=== PATIENT | female | born 1990 | race African-American/Black ===

== ENCOUNTER 2018-07-15 18:27 | Inpatient (IN) | payer MEDICAID ==
[~2018-07-15] VITALS: Ht 167.6 cm; Wt 75.3 kg
[~2018-07-15 18:27] MED LIST: COM10T PO; KEP500T PO; NAPR500T6 PO; PROC-8; SUMA100T PO
[2018-07-15] MEDS ORDERED: acetaminophen 325mg tablet PO ONE (18:50)
[2018-07-15 19:23] LABS: BASOPHILS % (AUTO) 0.3 % (0-1); EOSINOPHILS % (AUTO) 0.1 % (0-6); HEMATOCRIT 38.3 % (35.0-45.0); HEMOGLOBIN 12.6 g/dl (12.0-16.0); LYMPHOCYTES # (AUTO) 1.1 X10'3 (1.1-4.8); MEAN CORPUSCULAR HGB CONC 32.8 g/dL (33.0-36.5); MEAN CORPUSCULAR VOLUME 79.4 FL (78-98); MEAN PLATELET VOLUME 8.4 FL (7.4-10.4); MONOCYTES # (AUTO) 0.8 X10'3 (0-0.9); MONOCYTES % (AUTO) 8.1 % (2-12); NEUTROPHILS # (AUTO) 8.3 X10'3 (1.8-7.7); NEUTROPHILS % (AUTO) 80.5 % (42-75); PLATELET COUNT 240 X10'3 (140-440); RED BLOOD COUNT 4.83 X10'6 (4.20-5.60); RED CELL DISTRIBUTION WIDTH 15.5 % (11.5-14.5); WHITE BLOOD COUNT 10.4 X10'3 (4.5-11.0)
[2018-07-15 19:36] LABS: ALANINE AMINOTRANSFERASE 56 U/L (12-78); ALBUMIN 3.4 G/DL (3.4-5.0); ALBUMIN/GLOBULIN RATIO 0.8 (1.1-1.5); ALKALINE PHOSPHATASE 105 IU/L (46-116); ANION GAP 11 (8-16); ASPARTATE AMINO TRANSFERASE 49 U/L (10-37); BILIRUBIN,TOTAL 0.4 MG/DL (0.1-1.0); BLOOD UREA NITROGEN 7 MG/DL (7-18); BUN/CREATININE RATIO 10.4 (6.6-38.0); CALCIUM 8.5 MG/DL (8.5-10.1); CHLORIDE 98 MMOL/L (99-107); CREATININE 0.67 MG/DL (0.40-0.90); GLUCOSE 99 MG/DL (70-104); POTASSIUM 3.6 MMOL/L (3.5-5.1); SODIUM 133 MMOL/L (135-145); TOTAL CARBON DIOXIDE 24.2 MMOL/L (24-32); TOTAL PROTEIN 7.5 G/DL (6.4-8.2); eGFR > 90 ML/MIN
[2018-07-15 19:38] LABS: INR 1.2 INR; PARTIAL THROMBOPLASTIN TIME 34 SECONDS (22-32); PROTHROMBIN TIME 11.7 SECONDS (9.0-12.0)
[2018-07-15] MEDS ORDERED: normal saline 1000ML IV soln IVB ONE (19:45)
[2018-07-15] MEDS ORDERED: albuterol 2.5 MG/3 ML nebule NEB ONE (19:45)
[2018-07-15 19:52] LABS: CLARITY,URINE SLIGHTLY CLOUDY (Clear); COLOR,URINE YELLOW (Yellow); GLUCOSE, URINE NEGATIVE (Neg); KETONES,URINE 15 mg/dl (Neg); LEUKOCYTE ESTERASE ,URINE NEGATIVE (Neg); NITRITES, URINE NEGATIVE (Neg); OCCULT BLOOD,URINE LARGE (Neg); PROTEIN,URINE TRACE mg/dl (Neg)
[2018-07-15 19:56] LABS: UA COLLECTION TYPE CLN CATCH MIDSTREAM
[2018-07-15 19:57] LABS: MUCUS STRANDS MODERATE /LPF (Neg); SQUAMOUS EPITHELIAL CELL,UR MANY /LPF (FEW)
[2018-07-15 19:58] LABS: BACTERIA,URINE 2+ /HPF (Neg); WBC,URINE 0-4 /HPF (0-4)
[2018-07-15 20:14] LABS: URINE HCG NEGATIVE (NEG)
[2018-07-15] MEDS ORDERED: CefTRIAXone/D5W-Rocephin 1gm 50 ML IV ONE (20:20)
--- NOTE | 2018-07-15 20:35 | NUR ---
Dr kilgore made aware of spo2 88 on room air, patient currently on 1L via NC.
[2018-07-15] MEDS ORDERED: magnesium hydroxide 30ml (MOM) UD suspension PO PRN (20:40)
[2018-07-15] MEDS ORDERED: BUPR1FIL3 SL (20:40)
[2018-07-15] MEDS ORDERED: ondansetron/PF 4mg/2ml inj IV PRN (20:40)
[2018-07-15] MEDS ORDERED: acetaminophen 325mg tablet PO PRN (20:40)
[2018-07-15] MEDS ORDERED: mag hydrox/Alum hydrox/simeth 30ml oral suspension PO PRN (20:40)
[2018-07-15] MEDS: normal saline 1000ml 1,000 ML IV SCH (20:44)
[2018-07-15] MEDS ORDERED: SUMAtriptan 25 MG tablet PO PRN (20:45)
[2018-07-15] MEDS: levetiracetam 250mg tablet PO SCH (21:17)
--- NOTE | 2018-07-15 22:00 | NUR ---
pT REFUSED 2 TOMMIE NICOLE CHECK AT THIS TIME, DOES NOT WANT TO REMOVE CLOTHES, SKIN TO CHEST AND BACK IS CLEAR. PT IS INDEPENDENT, DENIES ANY SKIN ISSUES, SORES OR WOUNDS. Addendum: 07/15/18 at 0187 by Hermann Olivarez RN Amended: Links added.
[2018-07-16 00:26] VITALS: BP 99/54
[2018-07-16 05:00] LABS: BASOPHILS % (AUTO) 0.2 % (0-1); EOSINOPHILS % (AUTO) 0.1 % (0-6); HEMATOCRIT 34.6 % (35.0-45.0); HEMOGLOBIN 11.2 g/dl (12.0-16.0); LYMPHOCYTES # (AUTO) 1.8 X10'3 (1.1-4.8); LYMPHOCYTES % (AUTO) 16.3 % (21-51); MEAN CORPUSCULAR HEMOGLOBIN 25.8 PG (27.0-31.0); MEAN CORPUSCULAR HGB CONC 32.2 g/dL (33.0-36.5); MEAN CORPUSCULAR VOLUME 80.1 FL (78-98); MEAN PLATELET VOLUME 8.7 FL (7.4-10.4); MONOCYTES # (AUTO) 0.8 X10'3 (0-0.9); MONOCYTES % (AUTO) 7.5 % (2-12); NEUTROPHILS # (AUTO) 8.5 X10'3 (1.8-7.7); NEUTROPHILS % (AUTO) 75.9 % (42-75); PLATELET COUNT 208 X10'3 (140-440); RED BLOOD COUNT 4.33 X10'6 (4.20-5.60); RED CELL DISTRIBUTION WIDTH 15.9 % (11.5-14.5); WHITE BLOOD COUNT 11.2 X10'3 (4.5-11.0)
[2018-07-16 05:22] LABS: ALANINE AMINOTRANSFERASE 48 U/L (12-78); ALBUMIN 2.8 G/DL (3.4-5.0); ALBUMIN/GLOBULIN RATIO 0.7 (1.1-1.5); ALKALINE PHOSPHATASE 87 IU/L (46-116); ANION GAP 9 (8-16); ASPARTATE AMINO TRANSFERASE 35 U/L (10-37); BILIRUBIN,TOTAL 0.5 MG/DL (0.1-1.0); BLOOD UREA NITROGEN 5 MG/DL (7-18); BUN/CREATININE RATIO 7.8 (6.6-38.0); CALCIUM 8.2 MG/DL (8.5-10.1); CHLORIDE 103 MMOL/L (99-107); CREATININE 0.64 MG/DL (0.40-0.90); GLUCOSE 94 MG/DL (70-104); POTASSIUM 3.5 MMOL/L (3.5-5.1); SODIUM 138 MMOL/L (135-145); TOTAL CARBON DIOXIDE 26.2 MMOL/L (24-32); TOTAL PROTEIN 6.6 G/DL (6.4-8.2); eGFR > 90 ML/MIN
[2018-07-16] MEDS: normal saline 1000ml 1,000 ML IV SCH ×2 (05:59→15:00)
--- NOTE | 2018-07-16 06:31 | NUR ---
Problems reprioritized. Patient report given, questions answered & plan of care reviewed with TOMMIE RIVERA. Addendum: 07/16/18 at 0632 by Hermann Olivarez RN Amended: Links added.
--- NOTE | 2018-07-16 06:57 | NUR ---
Patient in room TEZ 345. I have received report from Jerri REILLY and had the opportunity to ask questions and assume patient care.
[2018-07-16] MEDS: albuterol 2.5 MG/3 ML nebule NEB PRN ×2 (07:55→17:06)
[2018-07-16 08:00] VITALS: BP 102/50
[2018-07-16] MEDS: azithromycin 250mg tablet PO SCH (08:45)
[2018-07-16] MEDS: levetiracetam 250mg tablet PO SCH ×2 (08:45→19:30)
[2018-07-16] MEDS: buprenorphine/naloxone 8MG-2MG SUBlingual film SL SCH (08:51)
[2018-07-16 11:04] VITALS: BP 90/50
--- NOTE | 2018-07-16 17:33 | NUR ---
pt was receiving breathing tx and o2sat 78% with 2.5L o2 via N/C. O2 turned up to 6L and pt o2 sat 92%. call to Dr. Rockwell, informed of above. Dr to make changes to pt medications. RT put pt on high flow o2 via n/c o2sat 93% on 8L.
[2018-07-16] MEDS ORDERED: ipratropium/albuterol 3ml nebule NEB PRN (18:15)
--- NOTE | 2018-07-16 18:26 | NUR ---
Patient in room TEZ 345. I have received report from TOMMIE Mcclendon and had the opportunity to ask questions and assume patient care. Addendum: 07/16/18 at 1827 by Hermann Olivarez RN Amended: Links added.
--- NOTE | 2018-07-16 18:36 | NUR ---
Problems reprioritized. Patient report given, questions answered & plan of care reviewed with Karie REILLY.
[2018-07-16 18:45] VITALS: BP 116/54
[2018-07-16 19:21] LABS: ABG HCO3 22.7 mmol/L (22.0-26.0); ABG OXYGEN SATURATION 95.7 % (95-98); ABG PCO2 (T) 35.4 mmHg (32.0-45.0); ABG PH (T) 7.428 (7.350-7.450); ABG PO2 (T) 80.8 mmHg (83-108); ALLEN'S TEST Positive; FCOHb 0.3 % (0.5-1.5); FLOW 8 L/min; FMetHb 0.3 % (0.3-1.12); FO2Hb 95.1 % (94-100); PATIENT TEMPERATURE 37.7; TOTAL HEMOGLOBIN 11.5 G/dl (12.0-16.0)
[2018-07-16] MEDS ORDERED: CefTRIAXone/D5W-Rocephin 1gm 50 ML IV SCH (20:00)
[2018-07-16] MEDS: ipratropium/albuterol 3ml nebule NEB SCH ×2 (20:03→23:00)
[2018-07-16 23:38] VITALS: BP_SYST 116; BP_SYST 118; BP_DIAS 54; BP_DIAS 64
[2018-07-17] MEDS: normal saline 1000ml 1,000 ML IV SCH ×2 (00:35→13:24)
[2018-07-17 05:24] LABS: BASOPHILS % (AUTO) 0.2 % (0-1); EOSINOPHILS % (AUTO) 0.4 % (0-6); HEMATOCRIT 31.3 % (35.0-45.0); HEMOGLOBIN 10.4 g/dl (12.0-16.0); LYMPHOCYTES # (AUTO) 1.3 X10'3 (1.1-4.8); LYMPHOCYTES % (AUTO) 12.1 % (21-51); MEAN CORPUSCULAR HEMOGLOBIN 26.5 PG (27.0-31.0); MEAN CORPUSCULAR HGB CONC 33.1 g/dL (33.0-36.5); MEAN PLATELET VOLUME 8.5 FL (7.4-10.4); MONOCYTES # (AUTO) 0.7 X10'3 (0-0.9); MONOCYTES % (AUTO) 6.5 % (2-12); NEUTROPHILS # (AUTO) 8.7 X10'3 (1.8-7.7); NEUTROPHILS % (AUTO) 80.8 % (42-75); PLATELET COUNT 195 X10'3 (140-440); RED BLOOD COUNT 3.91 X10'6 (4.20-5.60); RED CELL DISTRIBUTION WIDTH 16.2 % (11.5-14.5); WHITE BLOOD COUNT 10.8 X10'3 (4.5-11.0)
[2018-07-17 05:40] LABS: ALANINE AMINOTRANSFERASE 33 U/L (12-78); ALBUMIN 2.4 G/DL (3.4-5.0); ALBUMIN/GLOBULIN RATIO 0.6 (1.1-1.5); ALKALINE PHOSPHATASE 75 IU/L (46-116); ANION GAP 9 (8-16); ASPARTATE AMINO TRANSFERASE 18 U/L (10-37); BILIRUBIN,TOTAL 0.2 MG/DL (0.1-1.0); BLOOD UREA NITROGEN 5 MG/DL (7-18); BUN/CREATININE RATIO 9.4 (6.6-38.0); CHLORIDE 105 MMOL/L (99-107); CREATININE 0.53 MG/DL (0.40-0.90); GLUCOSE 145 MG/DL (70-104); POTASSIUM 3.1 MMOL/L (3.5-5.1); SODIUM 138 MMOL/L (135-145); TOTAL CARBON DIOXIDE 24.2 MMOL/L (24-32); TOTAL PROTEIN 6.1 G/DL (6.4-8.2); eGFR > 90 ML/MIN
--- NOTE | 2018-07-17 06:30 | NUR ---
Patient in room TEZ 345. I have received report from Karie REILLY and had the opportunity to ask questions and assume patient care.
--- NOTE | 2018-07-17 06:52 | NUR ---
Problems reprioritized. Patient report given, questions answered & plan of care reviewed with TOMMIE Womack. Addendum: 07/17/18 at 0652 by Hermann Olivarez RN Amended: Links added.
[2018-07-17 07:00] VITALS: BP 107/55
[2018-07-17] MEDS: ipratropium/albuterol 3ml nebule NEB SCH ×3 (07:07→14:53)
[2018-07-17] MEDS: azithromycin 250mg tablet PO SCH (08:40)
[2018-07-17] MEDS: levetiracetam 250mg tablet PO SCH (08:40)
[2018-07-17] MEDS: buprenorphine/naloxone 8MG-2MG SUBlingual film SL SCH (08:40)
[2018-07-17 11:00] VITALS: BP 109/51
--- NOTE | 2018-07-17 18:05 | NUR ---
Patient left AMA from hospital, hospitalist was notified and paper was signed.
== END 2018-07-17 18:21 | disposition left against medical advice (07) | DRG 720 ==
LOC: ER 18:28 → ED HOLD 20:37 → SUR 3N 21:37
PROVIDERS: ADMIT Internal Medicine; ATTEND Family Medicine
DX: A41.9 Sepsis, unspecified organism (principal); J96.01 Acute respiratory failure with hypoxia; J18.1 Lobar pneumonia, unspecified organism; F17.200 Nicotine dependence, unspecified, uncomplicated; J45.909 Unspecified asthma, uncomplicated; Z53.21 Procedure and treatment not carried out due to patient leaving prior to being seen by health care provider; F41.9 Anxiety disorder, unspecified; G43.909 Migraine, unspecified, not intractable, without status migrainosus; Z59.0 Homelessness; Z56.0 Unemployment, unspecified; Z79.899 Other long term (current) drug therapy
CPT/HCPCS: 36415; 36600; 71045; 80053; 81001; 81025; 82803; 83605; 84145; 85018; 85025; 85610; 85730; 87040; 87070; 87502; 87503; 94640; 94667; 94668; 94760; 96360; 99285; G0378; J0696; J7030

== ENCOUNTER 2019-04-04 07:42 | Emergency (ER) | payer MEDICAID ==
[~2019-04-04] VITALS: Ht 170.2 cm; Wt 80.0 kg
[~2019-04-04 07:42] MED LIST changes: +BUPR1FIL3 SL; -COM10T PO; -NAPR500T6 PO; -PROC-8
[2019-04-04 07:54] VITALS: BP 164/145
[2019-04-04] MEDS ORDERED: ibuprofen 200mg tablet PO ONE (08:40)
[2019-04-04] MEDS ORDERED: AMOX500C2 PO (08:58)
[2019-04-04] MEDS ORDERED: CHLO473M3 PO (08:58)
[2019-04-04] MEDS ORDERED: HYDR-3965 PO (08:58)
== END 2019-04-04 09:13 | disposition home or self-care (01) ==
LOC: ER 07:43
DX: K08.89 Other specified disorders of teeth and supporting structures (principal); K02.9 Dental caries, unspecified; G43.909 Migraine, unspecified, not intractable, without status migrainosus; J45.909 Unspecified asthma, uncomplicated; F41.9 Anxiety disorder, unspecified; Z86.69 Personal history of other diseases of the nervous system and sense organs; Z59.0 Homelessness; Z56.0 Unemployment, unspecified; Z79.899 Other long term (current) drug therapy
CPT/HCPCS: 99283

== ENCOUNTER 2021-05-20 03:47 | Emergency (ER) | payer MEDICAID ==
[~2021-05-20] VITALS: Ht 167.6 cm; Wt 90.9 kg
[~2021-05-20 03:47] MED LIST changes: +CHLO473M3 PO
[2021-05-20] MEDS ORDERED: proCHLORperazine 10 MG/2 ml inj IV ONE (04:15)
[2021-05-20] MEDS ORDERED: normal saline 1000ML IV soln IVB ONE (04:15)
[2021-05-20] MEDS ORDERED: pantoprazole 40MG/D5 100ML BAG 100 ML IV ONE (04:15)
[2021-05-20] MEDS ORDERED: LORazepam 2 mg/ml vial IV ONE (04:20)
[2021-05-20] MEDS ORDERED: pantoprazole 40MG/NS 100ML BAG 100 ML IV ONE (04:20)
[2021-05-20 04:26] LABS: BASOPHILS % (AUTO) 0.1 % (0-1); EOSINOPHILS # (AUTO) 0.1 X10'3 (0-0.9); EOSINOPHILS % (AUTO) 0.7 % (0-6); HEMOGLOBIN 13.8 g/dl (12.0-16.0); LYMPHOCYTES # (AUTO) 2.1 X10'3 (1.1-4.8); LYMPHOCYTES % (AUTO) 19.2 % (21-51); MEAN CORPUSCULAR HEMOGLOBIN 28.4 PG (27.0-31.0); MEAN CORPUSCULAR HGB CONC 32.8 g/dL (33.0-36.5); MEAN CORPUSCULAR VOLUME 86.4 FL (78-98); MEAN PLATELET VOLUME 8.2 FL (7.4-10.4); MONOCYTES # (AUTO) 0.5 X10'3 (0-0.9); MONOCYTES % (AUTO) 4.7 % (2-12); NEUTROPHILS % (AUTO) 75.3 % (42-75); PLATELET COUNT 250 X10'3 (140-440); RED BLOOD COUNT 4.86 X10'6 (4.20-5.60); RED CELL DISTRIBUTION WIDTH 14.4 % (11.5-14.5); WHITE BLOOD COUNT 10.7 X10'3 (4.5-11.0)
[2021-05-20 04:35] LABS: ALANINE AMINOTRANSFERASE 74 U/L (12-78); ALBUMIN 3.8 G/DL (3.4-5.0); ALBUMIN/GLOBULIN RATIO 1.1 (1.1-1.5); ALKALINE PHOSPHATASE 85 IU/L (46-116); ANION GAP 11 (8-16); ASPARTATE AMINO TRANSFERASE 31 U/L (10-37); BILIRUBIN,TOTAL 0.3 MG/DL (0.1-1.0); BLOOD UREA NITROGEN 10 MG/DL (7-18); BUN/CREATININE RATIO 13.9 (6.6-38.0); CALCIUM 8.8 MG/DL (8.5-10.1); CHLORIDE 107 MMOL/L (99-107); CREATININE 0.72 MG/DL (0.40-0.90); GLUCOSE 96 MG/DL (70-104); LIPASE 111 U/L (73-393); POTASSIUM 3.3 MMOL/L (3.5-5.1); SODIUM 144 MMOL/L (135-145); TOTAL CARBON DIOXIDE 26.3 MMOL/L (24-32); TOTAL PROTEIN 7.3 G/DL (6.4-8.2); eGFR > 90 ML/MIN
[2021-05-20] MEDS: morphine 2 MG/ML inj. syringe IV PRN ×2 (04:42→10:08)
[2021-05-20] MEDS ORDERED: PANT-47 PO (06:13)
[2021-05-20] MEDS ORDERED: ONDA8TAB13 PO (06:13)
--- NOTE | 2021-05-20 07:09 | NUR ---
ATTEMPTED MULTIPLE TIMES TO AROUSE PATIENT AND ARRANGE FOR TRANSPORTATION OF HER 5 YEAR OLD SON WHO IS IN ROOM 7 WHILE PT IN ROOM 8. PT NOTED TO HAVE URINATED AND HAD A BOWEL MOVEMENT ON HERSELF. PT AROUSABLE TO PAINFUL STIMULI BUT NODS BACK OFF AGAIN QUICKLY. PT REFUSING TO GET UP TO AMBULATE TO BATHROOM FOR URINE SAMPLE. WILL STRAIGHT CATH.
[2021-05-20 07:39] LABS: URINE HCG NEGATIVE (NEG)
[2021-05-20 07:46] LABS: URINE AMPHETAMINE SCREEN NEGATIVE (Neg); URINE BARBITUATE SCREEN NEGATIVE (Neg); URINE BENZODIAZEPINES SCREEN NEGATIVE (Neg); URINE CANNABINOID SCREEN NEGATIVE (Neg); URINE COCAINE SCREEN NEGATIVE (Neg); URINE METHADONE SCREEN NEGATIVE (Neg); URINE OPIATE SCREEN POSITIVE (Neg); URINE PHENCYCLIDINE SCREEN NEGATIVE (Neg)
[2021-05-20 07:48] LABS: CLARITY,URINE CLEAR (Clear); COLOR,URINE YELLOW (Yellow); GLUCOSE, URINE NEGATIVE (Neg); KETONES,URINE NEGATIVE (Neg); LEUKOCYTE ESTERASE ,URINE NEGATIVE (Neg); NITRITES, URINE NEGATIVE (Neg); OCCULT BLOOD,URINE NEGATIVE (Neg); PROTEIN,URINE NEGATIVE (Neg); UROBILINOGEN,URINE 0.2 E.U/dL (0.2-1.0)
[2021-05-20 07:49] LABS: UA COLLECTION TYPE STRAIGHT CATH
[2021-05-20] MEDS ORDERED: ondansetron/PF 4mg/2ml inj IV ONE (08:25)
[2021-05-20 08:44] LABS: ETHANOL < 0.010 GM/DL (0.0-0.010)
--- NOTE | 2021-05-20 09:07 | NUR ---
LEFT VOICEMAIL ON NEXT OF KIN PHONE TO DISCUSS EDITORIAL INTERN PTS CHILD THAT IS HERE.
--- NOTE | 2021-05-20 09:09 | NUR ---
SPOKE WITH PT GRANDMOTHER WHO WILL ARRANGE FOR PT SON TO BE PICKED UP BY DAD, RICARDO CUMMINGS.
--- NOTE | 2021-05-20 09:39 | NUR ---
PT'S SON'S FATHER RICARDO CALLED AND STATED HE IS IN [place] CURRENTLY ON VACATION AND THE GRANDMOTHER WE PREVIOUSLY CALLED IS IN [place]. PER THE FATHER, HE IS ARRANGING FOR HIS BROTHER (THE UNCLE OF THE PT SON) TO GET A CAR SO HE CAN COME CRUISE GUIDE THE PATIENT. ED CHARGE CORAL MADE AWARE OF THE SITUATION AND PROGRESS. [facility] CALLBACK NUMBER [phone] STATES HE WILL CALL BACK WHEN HIS BROTHER IS ON THE WAY
--- NOTE | 2021-05-20 11:07 | NUR ---
PT AWAKE AND AMBULATORY TO BATHROOM WITHOUT ASSIST.
[2021-05-20 11:32] VITALS: BP 121/72
== END 2021-05-20 11:39 | disposition home or self-care (01) ==
LOC: ER 03:48
DX: R11.10 Vomiting, unspecified (principal); R10.13 Epigastric pain; G43.909 Migraine, unspecified, not intractable, without status migrainosus; G40.909 Epilepsy, unspecified, not intractable, without status epilepticus; J45.909 Unspecified asthma, uncomplicated; F17.200 Nicotine dependence, unspecified, uncomplicated; Z87.01 Personal history of pneumonia (recurrent); Z56.0 Unemployment, unspecified; Z59.00 Homelessness unspecified; Z79.899 Other long term (current) drug therapy
CPT/HCPCS: 36415; 71045; 80053; 80305; 80320; 81003; 81025; 83690; 85025; 96365; 96366; 96375; 99284; C9113; J0780; J2060; J2270; J2405; J7030

== ENCOUNTER 2025-05-03 14:38 | Outpatient (CLI) | payer MEDICAID ==
[~2025-05-03 14:38] MED LIST changes: +CHLO473M13 PO; -CHLO473M3 PO; +ONDA-245 PO; +PANT-47 PO
--- NOTE | 2025-05-03 14:51 | ELECTROCARDIOGRAPH REPORT ---
[facility] Test Date: 2025-05-03 Test Time: 14:48:32 Pat Name: TOY WEN Department: [facility] Patient ID: [facility]-[id number] Room: Gender: F Melter Loader: KATHIA : 1990 Requested By: MAXI SZYMANSKI Order Number: [id number] Reading MD: Dr. ANDIE Arias Measurements Intervals [place] Rate: 84 P: 73 TX: 156 QRS: 78 QRSD: 78 T: 39 QT: 368 QTc: 436 Interpretive Statements Sinus rhythm Electronically Signed On 05-04-2025 13:17:[address] ANDIE Arias Please click the below link to view image of tracing.
== END 2025-05-03 23:59 | disposition home or self-care (01) ==
LOC: RAD 14:38
PROVIDERS: ATTEND Physician Assistant
DX: F11.20 Opioid dependence, uncomplicated (principal); I49.8 Other specified cardiac arrhythmias
CPT/HCPCS: 93005